=== PATIENT | female | born 1995 | race Caucasian/White ===

== ENCOUNTER 2016-11-23 15:24 | Emergency (ER) | payer OTHER ==
[~2016-11-23] VITALS: Ht 162.6 cm; Wt 75.0 kg
[2016-11-23 15:27] VITALS: BP 119/70; TEMP 99
[2016-11-23] MEDS ORDERED: FLEXERIL5 MG PO (16:25)
[2016-11-23 16:35] VITALS: PULSE 61
== END 2016-11-23 16:35 | disposition home or self-care (01) ==
LOC: COL.ER 15:24
DX: S16.1XXA Strain of muscle, fascia and tendon at neck level, initial encounter (principal); V43.52XA Car driver injured in collision with other type car in traffic accident, initial encounter